=== PATIENT | female | born 1925 | race Caucasian/White ===

== ENCOUNTER → 2017-01-09 | Outpatient (CLI) | payer OTHER, BC ==
--- NOTE | 2017-01-09 12:00 | DIAGNOSTIC IMAGING REPORT ---
ABDOMINAL ULTRASOUND COMPLETE HISTORY: OVARIAN CA W/LIVER METS,PT HAS PERITONEAL DRAIN. COMPARISON: None. FINDINGS: Pancreas: Obscured by overlying bowel gas. Liver: Slightly heterogeneous. No discrete masses identified by sonography. Gallbladder: No gallbladder wall thickening. No gallstones. CBD: 6 mm. Kidneys: Slightly atrophic right kidney measuring 7.0 cm. Left kidney measures 8.3 cm. No hydronephrosis. Left peripelvic renal cysts measuring up to 9 mm. Spleen: Normal in size. An 8 mm hypoechoic lesion. Aorta: Partially obscured by overlying bowel gas. There is a 4 cm mid abdominal aortic aneurysm. IVC: Patent. Miscellaneous: Small to moderate amount of ascites. Peritoneal drain is identified. IMPRESSION: 1. Small to moderate amount of ascites. A peritoneal drain is visualized. 2. Slightly heterogenous liver. No discrete masses identified. 3. An 8 mm hypoechoic lesion within the spleen which is indeterminate. 4. Slightly atrophic right kidney.. Electronically signed by: Gustavo Morris M.D. 01/09/2017 11:58 AM Dictated Date/Time: 01/09/2017 11:53 AM
--- NOTE | 2017-01-13 10:55 | CODING QUERY NO DIAGNOSIS ---
TREATMENT RENDERED WITHOUT A DIAGNOSIS Dr. Melendrez, To promote full compliance with coding requirements relating to patient care, physician participation is requested in all cases of sales product manager uncertainty. Please assist us with providing a diagnosis/symptom for the test(s) below: A diagnosis/symptom was not documented on your Order. A valid diagnosis/symptom is required to bill all insurances. Please remember that we are unable to code a diagnosis of rule out, probable, possible, questionable, or suspected. Tests that require a diagnosis: * ABDOMEN COMPLETE US DIAGNOSIS: DATE OF SERVICE: 01/09/17 Provider Signature: Date: Thank you Abhinav Hurley [facility] Information Management Once completed, please kindly fax back to [phone] For questions please call [phone]
== END | disposition home or self-care (01) ==
LOC: C.ULTR 10:38
PROVIDERS: ATTEND Internal Medicine Hematology & Oncology
DX: C56.9 Malignant neoplasm of unspecified ovary (principal); R18.8 Other ascites; D73.89 Other diseases of spleen